=== PATIENT | female | born 1990 | race Caucasian/White ===

== ENCOUNTER 2017-04-07 00:02 | Emergency (ER) | payer OTHER ==
[~2017-04-07] VITALS: Ht 170.2 cm; Wt 51.0 kg
[2017-04-07 06:14] LABS: BASOPHILS % 0.3 % (0.0-2.0); EOSINOPHILS % 0.6 % (0.0-5.0); HEMATOCRIT. 44.7 % (36.0-48.0); HEMOGLOBIN. 15.1 g/dL (12.0-16.0); MEAN CORPUSCULAR HEMOGLOBIN 32.3 pg (28.0-32.0); MEAN CORPUSCULAR VOLUME 95.7 fL (81.0-99.0); MEAN PLATELET VOLUME 6.5 fl (7.4-10.4); MONOCYTES % 5.7 % (2.0-8.0); NEUTROPHILS % 60.4 % (40.0-76.0); PLATELET 324 x1000/uL (130-400); RED BLOOD CELL COUNT 4.67 mill/uL (4.2-5.4); RED CELL DISTRIBUTION WIDTH 13.1 % (11.6-14.6)
[2017-04-07 06:21] LABS: HCG SCREEN NEGATIVE
[2017-04-07 06:28] LABS: CARBON DIOXIDE 27 mEq/L (21-32); CHLORIDE 110 mEq/L (98-107); ETHANOL BLOOD 92 mg/dL
[2017-04-07 08:26] VITALS: BP 103/70
== END 2017-04-07 08:32 | disposition left against medical advice (07) ==
LOC: ER 00:02
DX: F10.129 Alcohol abuse with intoxication, unspecified (principal)
CPT/HCPCS: 36415; 70450; 80053; 84703; 85025; 99285; G0482

== ENCOUNTER 2017-04-09 04:46 | Emergency (ER) | payer OTHER ==
[~2017-04-09] VITALS: Ht 149.9 cm; Wt 41.0 kg
[2017-04-09 04:49] VITALS: BP 103/72
[2017-04-09] MEDS ORDERED: DIAZEPAM 5 MG TABLET PO ONE (08:15)
== END 2017-04-09 09:09 | disposition home or self-care (01) ==
LOC: ER 04:59
DX: F41.0 Panic disorder [episodic paroxysmal anxiety] (principal)
CPT/HCPCS: 99284

== ENCOUNTER 2017-04-10 16:59 | Emergency (ER) | payer OTHER ==
[~2017-04-10] VITALS: Ht 165.1 cm; Wt 60.0 kg
[2017-04-10] MEDS ORDERED: LORAZEPAM 2MG/ML CPJ IV STA (20:06)
[2017-04-10] MEDS ORDERED: SODIUM CHLORIDE 0.9% 1,000 ML IV ONE (20:06)
[2017-04-10 20:59] LABS: CHLORIDE 113 mEq/L (98-107)
[2017-04-10 21:03] LABS: BASOPHILS % 0.4 % (0.0-2.0); EOSINOPHILS % 0.7 % (0.0-5.0); HEMATOCRIT. 41.9 % (36.0-48.0); HEMOGLOBIN. 14.4 g/dL (12.0-16.0); LYMPHOCYTES % 26.5 % (20.0-50.0); MEAN CORPUSCULAR HEMOGLOBIN 32.9 pg (28.0-32.0); MEAN CORPUSCULAR VOLUME 95.9 fL (81.0-99.0); MEAN PLATELET VOLUME 7.3 fl (7.4-10.4); MONOCYTES % 6.9 % (2.0-8.0); NEUTROPHILS % 65.5 % (40.0-76.0); PLATELET 294 x1000/uL (130-400); RED BLOOD CELL COUNT 4.37 mill/uL (4.2-5.4)
[2017-04-10 21:07] LABS: CARBON DIOXIDE 24 mEq/L (21-32); ETHANOL BLOOD < 10 mg/dL
[2017-04-10 21:13] LABS: HCG SCREEN NEGATIVE
[2017-04-10] MEDS ORDERED: DIAZEPAM 2 MG TABLET PO SCH (23:11)
[2017-04-10 23:46] VITALS: BP 103/66
== END 2017-04-10 23:50 | disposition home or self-care (01) ==
LOC: ER 17:46
DX: F41.9 Anxiety disorder, unspecified (principal); R45.1 Restlessness and agitation; F43.10 Post-traumatic stress disorder, unspecified; I51.7 Cardiomegaly; F99 Mental disorder, not otherwise specified
CPT/HCPCS: 36415; 80053; 80307; 80329; 84703; 85025; 93005; 96374; 99285; G0482; J7030